=== PATIENT | female | born 1945 | race African-American/Black ===

== ENCOUNTER 2017-10-22 21:53 | Emergency (ER) | payer OTHER ==
[~2017-10-22] VITALS: Ht 162.6 cm; Wt 84.0 kg
[2017-10-22 22:00] VITALS: BP 133/86
== END 2017-10-23 02:17 | disposition left against medical advice (07) ==
LOC: ER 22:03
DX: R10.9 Unspecified abdominal pain (principal); Z53.21 Procedure and treatment not carried out due to patient leaving prior to being seen by health care provider

== ENCOUNTER 2019-02-21 08:18 | Day surgery (SDC) | payer OTHER, MEDICAID ==
[~2019-02-21 08:18] MED LIST: ASPI-1159 PO; LORA1TAB PO; METF-414 PO; RIVA20TA PO; SERT50TA12 PO; TRAM50TA3 PO
[2019-02-21] MEDS ORDERED: MIDAZOLAM HCL 2 MG/2 ML VIAL ONE ×2 (09:23→10:10)
[2019-02-21] MEDS ORDERED: FENTANYL CITRATE/PF 50MCG/ML 2ML VIAL ONE ×2 (09:23→10:10)
[2019-02-21] MEDS ORDERED: DIPHENHYDRAMINE 50MG/ML VIAL ONE (09:23)
[2019-02-21] MEDS ORDERED: LIDOCAINE HCL 1% 20ML VIAL (Pyxis) INJ ONE ×2 (09:28→09:32)
[2019-02-21] MEDS ORDERED: IODIXANOL 320MG/ML 100 ML BOTTLE IV ONE (09:28)
[2019-02-21] MEDS ORDERED: HYDRALAZINE 20MG/ML VIAL ONE (10:33)
[2019-02-21] MEDS ORDERED: ATROPINE SULFATE 1MG/10ML SYR IV PRN (11:15)
[2019-02-21] MEDS ORDERED: ACETAMINOPHEN 325MG TABLET PO PRN (11:15)
[2019-02-21] MEDS ORDERED: ONDANSETRON HCL 4MG/2ML INJ IV PRN (11:15)
== END 2019-02-21 14:00 | disposition home or self-care (01) ==
LOC: CCL 08:18
PROVIDERS: ATTEND Specialist
DX: Z46.89 Encounter for fitting and adjustment of other specified devices (principal); I35.1 Nonrheumatic aortic (valve) insufficiency; I49.3 Ventricular premature depolarization; I10 Essential (primary) hypertension; E11.9 Type 2 diabetes mellitus without complications; M06.9 Rheumatoid arthritis, unspecified; F41.9 Anxiety disorder, unspecified; D86.9 Sarcoidosis, unspecified; Z79.01 Long term (current) use of anticoagulants; Z86.711 Personal history of pulmonary embolism; Z86.718 Personal history of other venous thrombosis and embolism
CPT/HCPCS: 37193; 75825; 82962; 99152; 99153; C1769; C1773; C1893; J0360; J1200; J1644; J2250; J3010; J3490; Q9967; G0500